=== PATIENT | male | born 1990 | race Caucasian/White ===

== ENCOUNTER 2016-10-27 11:22 | Emergency (ER) | payer MEDICAID ==
[~2016-10-27] VITALS: Ht 180.3 cm; Wt 82.0 kg
[~2016-10-27 11:22] MED LIST: DOXY100T20 PO
[2016-10-27 12:02] VITALS: Ht 180.3 cm; Wt 82.0 kg
[2016-10-27] MEDS ORDERED: AZITHROMYCIN 250 MG TAB PO ONE (14:30)
[2016-10-27] MEDS ORDERED: CEFTRIAXONE 250 MG INJ IM ONE (14:30)
[2016-10-27] MEDS ORDERED: LIDOCAINE 1% (MDV) 20 ML INJ IM ONE (14:30)
--- NOTE | 2016-10-27 14:50 | ERD ---
ER Documentation Chief Complaint Date/Time DATE: 10/27/16 TIME: 14:41 Chief Complaint POSSIBLE STD, GIRLFRIEND WAS TX FOR STD LAST NIGHT HPI Patient is a 26 year old male who presents to the ED for STD treatment. He states that his girlfriend was here this morning for STD treatment and would like it as well. He denies penile discharge. Denies fever or chills. Denies rashes. He states that he is currently sexually active and does not use protection. He denies a history of STDs. No other complaints. ROS All systems reviewed and are negative except as per history of present illness. Medications Home Meds Active Scripts Doxycycline Hyclate* (Doxycycline Hyclate*) 100 Mg Tablet., 100 MG PO BID for 10 Days, TAB Prov:GADIEL ROLON 10/20/15 Allergies Allergies: Coded Allergies: No Known Allergy (Unverified , 10/20/15) PMhx/Soc Medical and Surgical Hx: pt denies Medical Hx, pt denies Surgical Hx History of Surgery: No Anesthesia Reaction: No Hx Neurological Disorder: No Hx Respiratory Disorders: No Hx Cardiac Disorders: No Hx Psychiatric Problems: No Hx Miscellaneous Medical Probl: No Hx Alcohol Use: Yes (occasionally ) Hx Substance Use: Yes (marijuana everyday, occassional meth) Hx Tobacco Use: Yes (1 cig/ week) Smoking Status: Light tobacco smoker Physical Exam Vitals Vital Signs Date Time Temp Pulse Resp B/P Pulse Ox O2 Delivery O2 Flow Rate FiO2 10/27/16 12:02 97.4 81 19 123/70 99 Physical Exam GENERAL: Well-developed, well-nourished male. Appears in no acute distress. HEAD: Normocephalic, atraumatic. EYES: Pupils are equally reactive bilaterally. EOMs grossly intact. No conjunctival erythema. ENT: Moist mucous membranes. No uvula deviation. No kissing tonsils. No exudates. NECK: Supple. No lymphadenopathy or thyromegaly. No meningismus. negative kernig. negative brudinski. LUNG: Clear to auscultation bilaterally. No rhonchi, wheezing, rales or coarse breath sounds. HEART: Regular rate and rhythm. No murmurs, rubs or gallops. NEUROLOGIC: Alert and oriented. Moving all four extremities. 5/5 strength in all extremities. Normal speech. Steady gait. SKIN: Normal color. Warm and dry. No rashes or lesions. Capillary refill < 2 seconds Results 24 hrs Current Medications Medications (Trade) Dose Ordered Sig/Lisa Route PRN Reason Start Time Stop Time Status Last Admin Dose Admin Ceftriaxone Sodium (Rocephin) 250 mg ONCE ONCE IM 10/27/16 14:30 10/27/16 14:31 DC 10/27/16 14:17 Lidocaine (Xylocaine 1% (Mdv) 20 ml) 20 ml ONCE ONCE IM 10/27/16 14:30 10/27/16 14:31 DC 10/27/16 14:17 Azithromycin (Zithromax) 1,000 mg ONCE ONCE PO 10/27/16 14:30 10/27/16 14:31 DC 10/27/16 14:16 Procedures/MDM ER COURSE: I kept the patient and/or family informed of laboratory and diagnostic imaging results throughout the emergency room course. MEDICAL DECISION MAKING: This is a 26 year old male who presents with STD treatment. Vital signs were reviewed. Patient is afebrile. Patient is not hypoxic. Patient is not toxic or ill-appearing. I have low suspicion for STD as he does not have any discharge and has no complaints however since his girlfriend was diagnosed with STD, he will be treated in the ED. Patient was given Rocephin 250+ azithromycin. Tolerated well with no adverse reaction. Patient does not have any complaints in the ED. I have low suspicion for cellulitis, abscess, syphilis, testicular torsion, acute abdomen, sepsis. DISCHARGE: At this time, patient is stable for discharge and outpatient management with no new complaints during the ER course. Patient was sent home with instructions to have other partners treated. Patient will be discharged home with instructions to recheck for new or worsening symptoms such as fever, nausea, weakness, LOC and to follow up with primary care in the next 1-2 days. Patient was advised to return to the ER for any new or worsening symptoms. Plan was discussed and patient and/or family understands and agrees. Home instructions were given. Departure Diagnosis: Primary Impression: Screen for STD (sexually transmitted disease) Condition: Stable Patient Instructions: If You Think You Have an STD Referrals: DOCTOR,NOT ON STAFF (PCP) Additional Instructions: Call your primary care doctor TOMORROW for an appointment during the next 1-2 days.See the doctor sooner or return here if your condition worsens before your appointment time. Please make sure all partners are treated as well. KEERTHI MIMS PA-C Oct 27, 2016 14:50
== END 2016-10-27 14:41 | disposition home or self-care (01) ==
LOC: FTE 11:22
DX: Z11.3 Encounter for screening for infections with a predominantly sexual mode of transmission (principal); F17.210 Nicotine dependence, cigarettes, uncomplicated
CPT/HCPCS: 87591; 96372; J0696; Z7502; Z7610

== ENCOUNTER 2018-07-02 16:06 | Emergency (ER) | END 2018-07-02 19:00 | disposition home or self-care (01) ==